=== PATIENT | male | born 1955 | race Caucasian/White ===

== ENCOUNTER → 2023-03-12 | Outpatient (CLI) | payer MEDICARE ==
--- NOTE | 2023-03-13 15:58 | MR ---
EXAMINATION TYPE: MR knee LT wo con DATE OF EXAM: 03/12/2023 COMPARISON: None HISTORY: Left knee pain x2 months, TECHNIQUE: Multiplanar, multisequence imaging of the left knee is performed without IV contrast. FINDINGS: There are postsurgical changes of a partial left knee replacement involving the medial compartment. There is no acute fracture or bone marrow edema. There is moderate to marked osteophytic change of patellofemoral compartment where there is moderate to marked narrowing of the articular cartilage and marked subchondral cysts within the lateral facet of the patella. There is moderate to marked degenerative change of the lateral compartment knee where there is modera te to marked thinning of the articular cartilage and hypertrophic spurring. On the coronal images, there is an oblique tear body of the lateral meniscus. The cruciate and lateral collateral ligament are intact. IMPRESSION: 1. 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 2. Moderate to marked osteoarthritic change of the lateral compartment and patellofemoral compartment . 3. Oblique tear of the body of the lateral meniscus is suspected. 4. No ligamentous injury.
== END | disposition home or self-care (01) ==
LOC: RADMRIMAIN 18:17
PROVIDERS: ATTEND Orthopaedic Surgery Adult Reconstructive Orthopaedic Surgery
DX: S83.282A Other tear of lateral meniscus, current injury, left knee, initial encounter (principal); M17.12 Unilateral primary osteoarthritis, left knee; Z96.652 Presence of left artificial knee joint

== ENCOUNTER → 2023-05-12 | Outpatient (CLI) | payer MEDICARE ==
--- NOTE | 2023-05-12 10:36 | MR ---
EXAMINATION TYPE: MR Prostate wo/w con DATE OF EXAM: 05/12/2023 9:08 AM COMPARISON: None. CLINICAL INDICATION:Male, 67 years old with history of R97.20 ELEVATED PROSTATE SPECIFIC ANTIGEN; Lorelei vated PSA TECHNIQUE: Multi-planar, multi-sequence imaging of the pelvis is performed prior to and following the uncomplicated administration of bolus intravenous gadolinium. CONTRAST: 9.5 Gadavist Interpretive Criteria: PI-RADS v2.1 SERUM PSA: 8.97 on 04/28/2023. SURGICAL PATHOLOGY: No data available. FINDINGS: Prostatic dimensions: 4.4 x 3.9 x 2.9 cm. "Bullet" Volume:32.57 (PSA density=0.28 ng/mL/mL) CENTRAL GLAND (Central and Transition Zones/CZ+TZ): Multiple bilateral, heterogenous appearing hypertrophic stromal nodules, without suspicious lesion. (PI-RADS 2) PERIPHERAL ZONE (PZ): Low T2 signal associated DWI and low ADC signal measuring 8 mm. Arterial phase and enhancement within this region. (PI-RADS 4) SEMINAL VESICLES (SV): Symmetric and unremarkable. PERIPROSTATIC TISSUES: Unremarkable. LYMPH NODES: No enlarged pelvic lymph node. REMAINING PELVIS: Bladder wall is within normal limits given distention. No abnormal free or organized intrapelvic fluid collection. No pathologic bowel dilation or mural thickening. Left fat containing inguinal hernia OSSEOUS STRUCTURES: No suspicious osseous abnormality. IMPRESSION: 1. PI-RADS 4 lesion right peripheral zone mid gland measuring 8 mm 2. No suspicious osseous lesion. No lymphadenopathy. No evidence of prostate adenocarcinoma involvin g the periprostatic tissues.
== END | disposition home or self-care (01) ==
LOC: RADMRIMAIN 07:23
PROVIDERS: ATTEND Urology
DX: R97.20 Elevated prostate specific antigen [PSA] (principal)
CPT/HCPCS: 72197; A9585

== ENCOUNTER 2023-06-15 12:07 | Day surgery (SDC) | payer MEDICARE ==
--- NOTE | 2023-06-15 11:23 | P.HPIHPCON ---
History of Present Illness H&P Date: 06/15/23 Chief Complaint: Elevated PSA This is a 67-year-old male with history of elevated PSA at 8.97. MRI of the prostate showed a PI-RADS 4 lesion along the right mid gland discussed with him given this finding I recommend proceeding with an MRI fusion biopsy and a prostate biopsy. Discussed with him the risk which includes but not limited to bleeding, infection, false negative biopsy. He understood all the risk and agreed to proceed Consent for Procedure: I have explained the operation/procedure to the patient, including the risks, benefits, side effects, alternative therapies (including not receiving the proposed treatment or service), the likelihood of the patient achieving his/her goals, and potential recuperation problems for the procedure/sedation/analgesia, as well as any blood products, if indicated. I also explained to the patient the risks, benefits and side effects of the alternatives, as well as the risks related to not receiving the proposed procedure, care, treatment, or services. Past Medical History Past Medical History: No Reported History, Osteoarthritis (OA) History of Any Multi-Drug Resistant Organisms: None Reported Past Surgical History: Joint Replacement, Orthopedic Surgery Additional Past Surgical History / Comment(s): Total L knee, L knee surgery for torn meniscus. Past Anesthesia/Blood Transfusion Reactions: No Reported Reaction Smoking Status: Never smoker - Past Family History Father Family Medical History: Cancer Additional Family Medical History / Comment(s): Prostate cancer. Medications and Allergies Allergies Allergy/AdvReac Type Severity Reaction Status Date / Time No Known Allergies Allergy Verified 06/09/23 11:57 Surgical - Exam - General no distress, no pain - Eyes normal ocular movement, no pale - ENT normal nares, normal mucosa - Respiratory normal expansion, normal respiratory effort - Abdomen Abdomen: soft, non tender - Psychiatric oriented to time, oriented to person, oriented to place Assessment and Plan Assessment: -OR for MRI fusion biopsies
[~2023-06-15 12:07] MED LIST: HYDROmorphone 0.5 MG/0.5 ML SYRINGE IVP PRN; MIDAZOLAM 2 MG/2 ML VIAL IV PRN; Pre Op ABX Message 1 EACH MISC MISCELLANE ONE
[2023-06-15] MEDS: LACTATED RINGERS 1,000 ML IV SCH (13:24)
[2023-06-15] MEDS: GENTAMICIN 40 MG/ML 2 ML VIAL IM PRN (13:29)
[2023-06-15 13:42] VITALS: TEMP 97.8
[2023-06-15] MEDS ORDERED: fentaNYL (PF) 50 MCG/ML 2 ML AMP ONE (14:35)
[2023-06-15] MEDS ORDERED: LIDOCAINE 1% INJ 10MG/ML (20 ML MDV) ONE (14:35)
[2023-06-15] MEDS ORDERED: PROPOFOL 10 MG/ML 20 ML VIAL IV ONE (14:35)
[2023-06-15] MEDS ORDERED: MIDAZOLAM 2 MG/2 ML VIAL ONE (14:35)
--- NOTE | 2023-06-15 14:55 | P.OP ---
Date of Procedure: 06/15/23 Preoperative Diagnosis: Elevated PSA Postoperative Diagnosis: Same Procedure(s) Performed: MRI fusion biopsies of the prostate Implants: None Anesthesia: MAC Estimated Blood Loss (ml): 1 Pathology: other (Prostate biopsies) Condition: stable Disposition: PACU Indications for Procedure: This is a 67-year-old male with history of elevated PSA at 8.97. MRI of the prostate showed a PI-RADS 4 lesion along the right mid gland discussed with him given this finding I recommend proceeding with an MRI fusion biopsy and a prostate biopsy. Discussed with him the risk which includes but not limited to bleeding, infection, false negative biopsy. He understood all the risk and agreed to proceed Description of Procedure: The patient was taken to the operating room and placed in the left lateral decubitus position. The Turbulenz transrectal ultrasound probe was placed intrarectally. It was then placed within the stand of the [employer] MRI/TRUS Fusion for Prostate Biopsy system. The prostate was imaged in both the axial and sagittal planes. Using the Biopsy gun, 3 biopsies were obtained from the target lesion, there were was one lesions, . The remaining 12 biopsies of the peripheral zone were obtained utilizing a standard template. Once the procedure was completed, the ultrasound probe was removed. The patient tolerated the procedure well was taken to the recovery room stable condition
[2023-06-15 15:27] VITALS: BP 154/87; PULSE 80; RESP 16
== END 2023-06-15 15:23 | disposition home or self-care (01) ==
LOC: OR 12:07
PROVIDERS: ATTEND Urology
DX: C61 Malignant neoplasm of prostate (principal); N40.0 Benign prostatic hyperplasia without lower urinary tract symptoms; M19.90 Unspecified osteoarthritis, unspecified site; Z79.899 Other long term (current) drug therapy; Z98.890 Other specified postprocedural states
CPT/HCPCS: 55700; 88305; J2250; J1580; J2001; J3010; J2704

== ENCOUNTER 2023-08-17 13:02 | Day surgery (SDC) | payer MEDICARE ==
--- NOTE | 2023-08-17 11:05 | P.HPIHPCON ---
History of Present Illness H&P Date: 08/17/23 Chief Complaint: Prostate cancer This is a 67-year-old male with history of Plush 7(4+3) prostate cancer, elected to proceed with radiation therapy. Presents today for SpaceOAR gel placement. Risk benefit and rationale of surgery was discussed with him in detail. Aware the risk of bleeding infection, and potential of developing rectal toxicity even with a spaceOR gel placement Consent for Procedure: I have explained the operation/procedure to the patient, including the risks, benefits, side effects, alternative therapies (including not receiving the proposed treatment or service), the likelihood of the patient achieving his/her goals, and potential recuperation problems for the procedure/sedation/analgesia, as well as any blood products, if indicated. I also explained to the patient the risks, benefits and side effects of the alternatives, as well as the risks related to not receiving the proposed procedure, care, treatment, or services. Past Medical History Past Medical History: Cancer, Osteoarthritis (OA) Additional Past Medical History / Comment(s): prostate bx positive, History of Any Multi-Drug Resistant Organisms: None Reported Past Surgical History: Joint Replacement, Orthopedic Surgery Additional Past Surgical History / Comment(s): Total L knee, L knee surgery for torn meniscus. prostate bx, Past Anesthesia/Blood Transfusion Reactions: No Reported Reaction Smoking Status: Never smoker - Past Family History Father Family Medical History: Cancer Additional Family Medical History / Comment(s): Prostate cancer. Medications and Allergies Home Medications Medication Instructions Recorded Confirmed Type Aspirin 325 mg PO DIRECTED PRN 08/11/23 08/11/23 History Unk Fish Oil 1 tab PO DAILY 08/11/23 08/11/23 History Unk Multi Vitamin 1 tab PO DAILY 08/11/23 08/11/23 History Unk Vitamin E 1 tab PO DAILY 08/11/23 08/11/23 History Allergies Allergy/AdvReac Type Severity Reaction Status Date / Time No Known Allergies Allergy Verified 08/11/23 15:41 Surgical - Exam - General no distress, no pain - Eyes normal ocular movement, no pale - ENT normal nares, normal mucosa - Respiratory normal expansion, normal respiratory effort Assessment and Plan Assessment: OR for SpaceOAR gel placement
[~2023-08-17 13:02] MED LIST changes: +DEXAMETHASONE SOD PHOSPHATE 4 MG/ML 1 ML VIAL IV ONE; +LACTATED RINGERS 1,000 ML IV SCH; +LIDOCAINE 1% (10MG/ML) FOR IV START INTRADERMA PRN; +ONDANSETRON 4 MG/2 ML VIAL IVP ONE; -Pre Op ABX Message 1 EACH MISC MISCELLANE ONE
[2023-08-17] MEDS: LACTATED RINGERS 1,000 ML IV ONE (13:23)
[2023-08-17 13:31] VITALS: TEMP 97.2
[2023-08-17] MEDS ORDERED: PROPOFOL 10 MG/ML 20 ML VIAL IV ONE (14:02)
[2023-08-17] MEDS ORDERED: MIDAZOLAM 2 MG/2 ML VIAL ONE (14:02)
[2023-08-17] MEDS ORDERED: fentaNYL (PF) 50 MCG/ML 2 ML AMP ONE (14:02)
[2023-08-17] MEDS: LIDOCAINE 2% INJ 20 MG/ML SQ ONE ×2 (14:21)
--- NOTE | 2023-08-17 14:33 | P.OP ---
Date of Procedure: 08/17/23 Preoperative Diagnosis: Prostate cancer Postoperative Diagnosis: Same Procedure(s) Performed: SpaceOAR gel placement Implants: SpaceOAR gel Anesthesia: MAC Surgeon: Sameer Mejia Estimated Blood Loss (ml): 1 Pathology: none sent Condition: stable Disposition: PACU Indications for Procedure: This is a 67-year-old male with history of Vici 7(4+3) prostate cancer, elected to proceed with radiation therapy. Presents today for SpaceOAR gel placement. Risk benefit and rationale of surgery was discussed with him in detail. Aware the risk of bleeding infection, and potential of developing rectal toxicity even with a spaceOR gel placement Description of Procedure: The patient was taken to the operating room and placed in the dorsolithotomy position, with his legs supported in Manish stirrups. The external genitalia was prepped and draped sterilely. The transrectal ultrasound probe was placed intrarectally. The prostate was imaged. The probe was then placed within the stabilizing stand. A spinal needle was advanced under ultrasonic guidance to the level of the urogenital diaphragm, and lidocaine was used to infiltrate the tissues as the needle was withdrawn. Next, the SpaceOAR needle was passed through the midline of the perineum, 1-2 cm anterior to the anal opening. The needle was slowly advanced under ultrasonic guidance until the needle tip was located within the fat plane between the prostate and rectum, at the level of the mid prostate gland. The needle was confirmed to be midline on the axial imaging. A small amount of normal saline was injected for hydrodissection. Next, the SpaceOAR components were mixed and loaded into the Y connector per protocol. The Y connector was then connected to the needle, and the components were injected slowly over a course of approximately 10 seconds. A total of 10 ml was injected. Significant distance was created between the prostate and rectum, as desired. It should be noted that at no point was there any concern of rectal perforation. The needle was withdrawn, as well as the transrectal ultrasound probe, and the procedure was terminated. The patient tolerated the procedure well and was taken to the recovery room in stable condition
[2023-08-17 15:23] VITALS: BP 107/69; PULSE 81; RESP 16
== END 2023-08-17 15:03 | disposition home or self-care (01) ==
LOC: OR 13:02
PROVIDERS: ATTEND Urology
DX: C61 Malignant neoplasm of prostate (principal); M19.90 Unspecified osteoarthritis, unspecified site; Z79.82 Long term (current) use of aspirin; Z98.890 Other specified postprocedural states
CPT/HCPCS: 55874; C1889; J2001; J2250; J0690; J3010; J2704

== ENCOUNTER → 2023-11-22 | Outpatient (CLI) | payer MEDICARE | END | disposition home or self-care (01) | LOC: LABWHC1 10:20 | PROVIDERS: ATTEND Radiology Radiation Oncology | DX: C61 Malignant neoplasm of prostate (principal); Z80.42 Family history of malignant neoplasm of prostate | CPT/HCPCS: 36415; 84153 ==